=== PATIENT | male | born 1975 | race Caucasian/White ===

== ENCOUNTER 2017-07-06 15:17 | Emergency (ER) | payer SELFPAY ==
[~2017-07-06] VITALS: Ht 170.2 cm; Wt 87.8 kg
[2017-07-06 15:19] VITALS: BP 127/86
[2017-07-06] MEDS ORDERED: CLINDAMYCIN 150 MG CAPSULE ONE (16:54)
[2017-07-06] MEDS ORDERED: CLINDAMYCIN 150 MG CAPSULE PO ONE (17:00)
== END 2017-07-06 17:24 | disposition home or self-care (01) ==
LOC: ED 16:42
DX: L03.115 Cellulitis of right lower limb (principal)
CPT/HCPCS: 82962; 99284

== ENCOUNTER 2018-11-18 04:37 | Emergency (ER) | payer SELFPAY ==
[~2018-11-18] VITALS: Ht 167.6 cm; Wt 96.9 kg
[2018-11-18 04:40] VITALS: BP 141/99
== END 2018-11-18 05:36 | disposition home or self-care (01) ==
LOC: ED 05:35
DX: R21 Rash and other nonspecific skin eruption (principal); B86 Scabies
CPT/HCPCS: 99283